=== PATIENT | female | born 1950 | race Caucasian/White ===

== ENCOUNTER 2016-09-15 14:05 | Inpatient (IN) | payer OTHER ==
[~2016-09-15] VITALS: Ht 170.2 cm; Wt 102.1 kg
[~2016-09-15 14:05] MED LIST: CARDIZEM CD240 MG PO; CITALOPRAM HBR10 MG PO; CITALOPRAM HBR20 MG PO; CLARITIN 10MG T10 MG PO; CLARITIN10 MG PO; COLACE 100MG C100 MG PO; COMBIVENT0.074 GM/I INH; COREG 12.5MG12.5 MG PO; DIAMOX 250 MG250 MG PO; ECOTRIN81 MG PO; FLAGYL500 MG PO; FLUOXETINE HCL10 MG PO; GLUCOTROL 10 MG10 MG PO; HABITROL 14 MG P1 EA TD; IPRAT-ALBUT 0.5-3 ML INH; LANTUS INS100 UTS/M1 SQ; LANTUS100 UNIT/1 SC; LASIX 40 MG TAB40 MG PO; LEVAQUIN500 MG PO; LEVAQUIN750 MG PO; LISINOPRIL10 MG PO; LOPERAMIDE2 MG PO; MEDROL DOSEPAK 24 MG PO; MONTELUKAST SOD10 MG PO; MORPHINE SULFAT15 M2 PO; MORPHINE SULFAT15 MG PO; NEURONTIN 300300 MG PO; NOVOLOG 10100 UNITS/ SQ; NOVOLOG 10100 UNITS1 SQ; OMEPRAZOLE20 MG PO; OXYCODONE HCL10 MG PO; SPIRIVA18 MCG INH; SYMBICORT 160-1 INHA INH; SYMBICORT 16010.2 GM INH; VITAMIN D50000 UNIT PO
[2016-09-15 14:33] LABS: HEMOGLOBIN 11.3 gm/dl (12.3-15.3); RED BLOOD COUNT 3.77 M/UL (4.00-5.10); WHITE BLOOD COUNT 13.3 K/UL (4.5-11.0)
[2016-09-16 03:44] LABS: HEMOGLOBIN 9.4 gm/dl (12.3-15.3)
[2016-09-16 03:45] LABS: RED BLOOD COUNT 3.19 M/UL (4.00-5.10); WHITE BLOOD COUNT 7.9 K/UL (4.5-11.0)
[2016-09-16 20:34] LABS: BUN/CREATININE RATIO 29 (0-10)
[2016-09-17 05:25] LABS: HEMOGLOBIN 9.3 gm/dl (12.3-15.3); RED BLOOD COUNT 3.05 M/UL (4.00-5.10); WHITE BLOOD COUNT 7.2 K/UL (4.5-11.0)
[2016-09-17 05:41] LABS: BUN/CREATININE RATIO 30 (0-10)
[2016-09-18 03:42] LABS: HEMOGLOBIN 8.3 gm/dl (12.3-15.3); RED BLOOD COUNT 2.8 M/UL (4.00-5.10); WHITE BLOOD COUNT 5.5 K/UL (4.5-11.0)
[2016-09-18 03:58] LABS: BUN/CREATININE RATIO 27 (0-10)
[2016-09-19 03:54] LABS: HEMOGLOBIN 8.6 gm/dl (12.3-15.3); RED BLOOD COUNT 2.88 M/UL (4.00-5.10); WHITE BLOOD COUNT 6.1 K/UL (4.5-11.0)
[2016-09-19 04:13] LABS: BUN/CREATININE RATIO 25 (0-10)
[2016-09-20 03:19] LABS: HEMOGLOBIN 8.8 gm/dl (12.3-15.3); RED BLOOD COUNT 2.95 M/UL (4.00-5.10)
[2016-09-20 03:49] LABS: BUN/CREATININE RATIO 26 (0-10)
[2016-09-21 03:37] LABS: HEMOGLOBIN 8.9 gm/dl (12.3-15.3); RED BLOOD COUNT 3.02 M/UL (4.00-5.10)
[2016-09-21 04:01] LABS: BUN/CREATININE RATIO 43 (0-10)
[2016-09-22 05:20] LABS: HEMOGLOBIN 8.5 gm/dl (12.3-15.3); RED BLOOD COUNT 2.85 M/UL (4.00-5.10); WHITE BLOOD COUNT 5.4 K/UL (4.5-11.0)
[2016-09-22 05:30] LABS: BUN/CREATININE RATIO 40 (0-10)
[2016-09-22] MEDS ORDERED: CHRONULAC20 GM/30 M PO (15:36)
[2016-09-22] MEDS ORDERED: ELIQUIS5 MG PO (15:37)
[2017-01-21] MEDS ORDERED: LASIX TAB 20 MG20 MG PO (21:38)
[2017-01-21] MEDS ORDERED: COREG 12.5MG12.5 MG PO (21:38)
[2017-01-21] MEDS ORDERED: GABAPENTIN600 MG PO (21:38)
[2017-01-21] MEDS ORDERED: COMBIVENT0.074 GM/I INH (21:39)
[2017-01-21] MEDS ORDERED: CHERATUSSIN AC473 ML PO (21:41)
[2017-01-21] MEDS ORDERED: COMBIVENT RESPIM4 GM INH (21:41)
[2017-01-21] MEDS ORDERED: FLUOXETINE HCL10 M1 PO (21:42)
[2017-01-21] MEDS ORDERED: DILTIAZEM 24HR240 M1 PO (21:42)
[2017-01-21] MEDS ORDERED: CITALOPRAM HBR20 MG PO (21:42)
[2017-01-21] MEDS ORDERED: KRISTALOSE10 GM PO (21:43)
[2017-01-21] MEDS ORDERED: GLUCOTROL 10 MG10 MG PO (21:43)
[2017-01-21] MEDS ORDERED: KLOR-CON M1010 MEQ PO (21:44)
[2017-01-21] MEDS ORDERED: EFFER-K 10 MEQ10 MEQ PO (21:44)
[2017-01-21] MEDS ORDERED: VENTOLIN/PROVE0.5 ML INH (21:45)
[2017-01-23] MEDS ORDERED: LANTUS INS100 UTS/M1 SQ (07:05)
[2017-01-28] MEDS ORDERED: ASPIRIN81 MG PO (15:25)
[2017-01-28] MEDS ORDERED: LEVAQUIN750 MG PO (15:32)
[2017-01-28] MEDS ORDERED: [UNRECOGNIZED DRUG - OTHER] INH (15:50)
== END 2016-09-22 17:18 | disposition home health service (06) | DRG 207 ==
LOC: ER1 14:05 → MED SURG 4 16:00 → CCU 16:00 → ZEROF 16:00 → CCU 20:30 → MED SURG 4 09-21 16:15
PROVIDERS: Emergency Medicine; Internal Medicine Critical Care Medicine; Physician Assistant; ADMIT Family Medicine
PROC: 5A1955Z Respiratory Ventilation, Greater than 96 Consecutive Hours (ICD-10-PCS; principal; 2016-09-15)
PROC: 0BJ08ZZ Inspection of Tracheobronchial Tree, Via Natural or Artificial Opening Endoscopic (ICD-10-PCS; 2016-09-16)
DX: J96.02 Acute respiratory failure with hypercapnia (principal); K72.00 Acute and subacute hepatic failure without coma; G93.41 Metabolic encephalopathy; J18.9 Pneumonia, unspecified organism; N17.9 Acute kidney failure, unspecified; J44.1 Chronic obstructive pulmonary disease with (acute) exacerbation; E66.2 Morbid (severe) obesity with alveolar hypoventilation; I50.30 Unspecified diastolic (congestive) heart failure; J96.01 Acute respiratory failure with hypoxia; R91.8 Other nonspecific abnormal finding of lung field; I48.0 Paroxysmal atrial fibrillation; I11.0 Hypertensive heart disease with heart failure; D69.6 Thrombocytopenia, unspecified; F11.90 Opioid use, unspecified, uncomplicated; Z90.10 Acquired absence of unspecified breast and nipple; Z98.890 Other specified postprocedural states; Z88.0 Allergy status to penicillin; Z91.041 Radiographic dye allergy status; Z88.6 Allergy status to analgesic agent; Z88.8 Allergy status to other drugs, medicaments and biological substances; Z79.899 Other long term (current) drug therapy; Z79.82 Long term (current) use of aspirin; Z79.4 Long term (current) use of insulin; Z87.891 Personal history of nicotine dependence; Z82.3 Family history of stroke; Z82.49 Family history of ischemic heart disease and other diseases of the circulatory system; R53.1 Weakness; E78.5 Hyperlipidemia, unspecified; E11.9 Type 2 diabetes mellitus without complications; K74.60 Unspecified cirrhosis of liver; Z85.3 Personal history of malignant neoplasm of breast; R41.82 Altered mental status, unspecified; M51.36 Other intervertebral disc degeneration, lumbar region; Z86.19 Personal history of other infectious and parasitic diseases; Z87.01 Personal history of pneumonia (recurrent); K21.9 Gastro-esophageal reflux disease without esophagitis; Z68.32 Body mass index [BMI] 32.0-32.9, adult
CPT/HCPCS: 31500; 36415; 36600; 51702; 70450; 71010; 71020; 80048; 80053; 80202; 80307; 81001; 82140; 82550; 82553; 82803; 82962; 83605; 83735; 83874; 83880; 84100; 84484; 85025; 85027; 87040; 87070; 87086; 87205; 87899; 93005; 94002; 94003; 94640; 94660; 94664; 96374; 96375; 97116; 97530; 99285; A4628; C9113; J1120; J1644; J1650; J1940; J1956; J2405; J3370; J7030; J7070

== ENCOUNTER → 2016-11-22 | Outpatient (CLI) | payer OTHER ==
[~2016-11-22] MED LIST changes: +ASPIRIN81 MG PO; +CELEXA20 MG PO; +CHERATUSSIN AC473 ML PO; +CHRONULAC20 GM/30 M PO; +COMBIVENT RESPIM4 GM INH; +CONSTULOSE10 GM/15 M PO; +DILTIAZEM 24HR240 M1 PO; +EFFER-K 10 MEQ10 MEQ PO; +ELIQUIS5 MG PO; +FLUOXETINE HCL10 M1 PO; +GABAPENTIN600 MG PO; +KLOR-CON M1010 MEQ PO; +KRISTALOSE10 GM PO; +LANOXIN TAB0.125 MG PO; +LASIX TAB 20 MG20 MG PO; +LASIX20 MG PO; +OXYGEN; +POTASSIUM CHLO10 MEQ PO; +SPIRIVA HANDIH18 MCG INH; +TYLENOL 325MG325 MG PO; +VENTOLIN HFA 66.7 GM INH; +VENTOLIN/PROVE0.5 ML INH; +[UNRECOGNIZED DRUG - OTHER] INH
== END ==
LOC: MAMO 11-01 09:40
DX: Z12.31 Encounter for screening mammogram for malignant neoplasm of breast (principal); D61.810 Antineoplastic chemotherapy induced pancytopenia; D69.6 Thrombocytopenia, unspecified; Z85.3 Personal history of malignant neoplasm of breast; R91.1 Solitary pulmonary nodule; J44.9 Chronic obstructive pulmonary disease, unspecified; R09.02 Hypoxemia
CPT/HCPCS: 36600; 82803; G0202

== ENCOUNTER → 2016-11-23 | Outpatient (CLI) | payer OTHER | LOC: HEART 5 10:11 | DX: J44.9 Chronic obstructive pulmonary disease, unspecified (principal) | CPT/HCPCS: 94060; 94729 ==

== ENCOUNTER → 2016-12-08 | Outpatient (CLI) | payer OTHER ==
[~2016-12-08] VITALS: Ht 162.6 cm; Wt 92.1 kg
[2016-12-08 10:12] LABS: HEMOGLOBIN 9.6 gm/dl (12.3-15.3); RED BLOOD COUNT 3.28 M/UL (4.00-5.10); WHITE BLOOD COUNT 9.5 K/UL (4.5-11.0)
== END ==
LOC: CT 09:04
PROVIDERS: Internal Medicine Hematology & Oncology
PROC: 0BBK3ZX Excision of Right Lung, Percutaneous Approach, Diagnostic (ICD-10-PCS; principal; 2016-12-08)
DX: R91.1 Solitary pulmonary nodule (principal); D61.810 Antineoplastic chemotherapy induced pancytopenia; D69.6 Thrombocytopenia, unspecified; Z85.3 Personal history of malignant neoplasm of breast; J93.9 Pneumothorax, unspecified
CPT/HCPCS: 36415; 71010; 77012; 82962; 85027; 85610; 85730; 88341; 88342

== ENCOUNTER 2016-12-15 22:59 | Inpatient (IN) | payer OTHER ==
[~2016-12-15] VITALS: Ht 162.6 cm; Wt 92.1 kg
[~2016-12-15 22:59] MED LIST changes: -ASPIRIN81 MG PO; -CELEXA20 MG PO; -CHERATUSSIN AC473 ML PO; -COMBIVENT RESPIM4 GM INH; -CONSTULOSE10 GM/15 M PO; -DILTIAZEM 24HR240 M1 PO; -EFFER-K 10 MEQ10 MEQ PO; -FLUOXETINE HCL10 M1 PO; -GABAPENTIN600 MG PO; -KLOR-CON M1010 MEQ PO; -KRISTALOSE10 GM PO; -LANOXIN TAB0.125 MG PO; -LASIX TAB 20 MG20 MG PO; -LASIX20 MG PO; -OXYGEN; -POTASSIUM CHLO10 MEQ PO; -SPIRIVA HANDIH18 MCG INH; -TYLENOL 325MG325 MG PO; -VENTOLIN HFA 66.7 GM INH; -VENTOLIN/PROVE0.5 ML INH; -[UNRECOGNIZED DRUG - OTHER] INH
[2016-12-15 23:50] LABS: HEMOGLOBIN 8.8 gm/dl (12.3-15.3); RED BLOOD COUNT 3.06 M/UL (4.00-5.10); WHITE BLOOD COUNT 8.6 K/UL (4.5-11.0)
[2016-12-16 06:06] LABS: HEMOGLOBIN 8.4 gm/dl (12.3-15.3); RED BLOOD COUNT 2.9 M/UL (4.00-5.10); WHITE BLOOD COUNT 7.5 K/UL (4.5-11.0)
[2016-12-16 06:20] LABS: BUN/CREATININE RATIO 30 (0-10)
[2016-12-17 05:19] LABS: HEMOGLOBIN 8.5 gm/dl (12.3-15.3); RED BLOOD COUNT 2.94 M/UL (4.00-5.10)
[2016-12-17 05:21] LABS: WHITE BLOOD COUNT 9.6 K/UL (4.5-11.0)
[2016-12-17 05:42] LABS: BUN/CREATININE RATIO 36 (0-10)
[2016-12-18 19:36] LABS: BUN/CREATININE RATIO 31 (0-10)
[2016-12-19] MEDS ORDERED: LASIX20 MG PO (11:32)
[2016-12-19] MEDS ORDERED: GLUCOTROL 10 MG10 MG PO (11:43)
[2016-12-19] MEDS ORDERED: LEVAQUIN750 MG PO (11:45)
[2016-12-19] MEDS ORDERED: LISINOPRIL10 MG PO (11:46)
[2016-12-19] MEDS ORDERED: SPIRIVA HANDIH18 MCG INH (11:49)
[2016-12-19] MEDS ORDERED: MEDROL DOSEPAK 24 MG PO (11:56)
[2017-01-21] MEDS ORDERED: COREG 12.5MG12.5 MG PO (21:38)
[2017-01-21] MEDS ORDERED: GABAPENTIN600 MG PO (21:38)
[2017-01-21] MEDS ORDERED: LASIX TAB 20 MG20 MG PO (21:38)
[2017-01-21] MEDS ORDERED: COMBIVENT0.074 GM/I INH (21:39)
[2017-01-21] MEDS ORDERED: CHERATUSSIN AC473 ML PO (21:41)
[2017-01-21] MEDS ORDERED: COMBIVENT RESPIM4 GM INH (21:41)
[2017-01-21] MEDS ORDERED: DILTIAZEM 24HR240 M1 PO (21:42)
[2017-01-21] MEDS ORDERED: FLUOXETINE HCL10 M1 PO (21:42)
[2017-01-21] MEDS ORDERED: CITALOPRAM HBR20 MG PO (21:42)
[2017-01-21] MEDS ORDERED: GLUCOTROL 10 MG10 MG PO (21:43)
[2017-01-21] MEDS ORDERED: KRISTALOSE10 GM PO (21:43)
[2017-01-21] MEDS ORDERED: EFFER-K 10 MEQ10 MEQ PO (21:44)
[2017-01-21] MEDS ORDERED: KLOR-CON M1010 MEQ PO (21:44)
[2017-01-21] MEDS ORDERED: VENTOLIN/PROVE0.5 ML INH (21:45)
[2017-01-23] MEDS ORDERED: LANTUS INS100 UTS/M1 SQ (07:05)
[2017-01-28] MEDS ORDERED: ASPIRIN81 MG PO (15:25)
[2017-01-28] MEDS ORDERED: LEVAQUIN750 MG PO (15:32)
[2017-01-28] MEDS ORDERED: [UNRECOGNIZED DRUG - OTHER] INH (15:50)
== END 2016-12-19 11:15 | disposition home or self-care (01) | DRG 189 ==
LOC: ER1 22:59 → ZEROF 12-16 01:40 → PROG CARE 12-16 17:04
PROVIDERS: Emergency Medicine; Hospitalist; ADMIT Internal Medicine
PROC: 5A09457 Assistance with Respiratory Ventilation, 24-96 Consecutive Hours, Continuous Positive Airway Pressure (ICD-10-PCS; principal; 2016-12-16)
DX: J96.22 Acute and chronic respiratory failure with hypercapnia (principal); G92 Toxic encephalopathy; J44.1 Chronic obstructive pulmonary disease with (acute) exacerbation; I50.32 Chronic diastolic (congestive) heart failure; E66.2 Morbid (severe) obesity with alveolar hypoventilation; C34.2 Malignant neoplasm of middle lobe, bronchus or lung; J44.0 Chronic obstructive pulmonary disease with (acute) lower respiratory infection; J96.21 Acute and chronic respiratory failure with hypoxia; I48.0 Paroxysmal atrial fibrillation; K74.60 Unspecified cirrhosis of liver; I10 Essential (primary) hypertension; E78.5 Hyperlipidemia, unspecified; F17.210 Nicotine dependence, cigarettes, uncomplicated; K75.81 Nonalcoholic steatohepatitis (NASH); D69.6 Thrombocytopenia, unspecified; M51.36 Other intervertebral disc degeneration, lumbar region; G89.4 Chronic pain syndrome; K21.9 Gastro-esophageal reflux disease without esophagitis; D64.9 Anemia, unspecified; T38.0X5A Adverse effect of glucocorticoids and synthetic analogues, initial encounter; E11.65 Type 2 diabetes mellitus with hyperglycemia; T40.605A Adverse effect of unspecified narcotics, initial encounter; Z79.01 Long term (current) use of anticoagulants; Z99.81 Dependence on supplemental oxygen; Z79.891 Long term (current) use of opiate analgesic; Z85.3 Personal history of malignant neoplasm of breast; Z88.0 Allergy status to penicillin; Z88.3 Allergy status to other anti-infective agents; Z91.041 Radiographic dye allergy status; Z82.49 Family history of ischemic heart disease and other diseases of the circulatory system; Z82.3 Family history of stroke; Z68.36 Body mass index [BMI] 36.0-36.9, adult; Z79.82 Long term (current) use of aspirin; Z79.4 Long term (current) use of insulin; Z79.899 Other long term (current) drug therapy
CPT/HCPCS: 36415; 36600; 71010; 80048; 80053; 82550; 82553; 82803; 82962; 83036; 83605; 83874; 83880; 84484; 85025; 87040; 87070; 87205; 93005; 94640; 94660; 94664; 96365; 96366; 96375; 99285; J1815; J1956; J2920; J2930

== ENCOUNTER 2016-12-26 12:20 | Inpatient (IN) | payer OTHER ==
[~2016-12-26] VITALS: Ht 162.6 cm; Wt 91.2 kg
[~2016-12-26 12:20] MED LIST changes: +LASIX20 MG PO; +SPIRIVA HANDIH18 MCG INH
[2016-12-26 13:04] LABS: HEMOGLOBIN 10.9 gm/dl (12.3-15.3); RED BLOOD COUNT 3.74 M/UL (4.00-5.10); WHITE BLOOD COUNT 24.1 K/UL (4.5-11.0)
[2016-12-26 13:20] LABS: BUN/CREATININE RATIO 39 (0-10)
[2016-12-26] MEDS ORDERED: CONSTULOSE10 GM/15 M PO (18:36)
[2016-12-26] MEDS ORDERED: POTASSIUM CHLO10 MEQ PO (18:38)
[2016-12-26] MEDS ORDERED: VENTOLIN HFA 66.7 GM INH (18:40)
[2016-12-26] MEDS ORDERED: CELEXA20 MG PO (18:41)
[2016-12-26] MEDS ORDERED: CLARITIN 10MG T10 MG PO (18:41)
[2016-12-27 03:22] LABS: HEMOGLOBIN 10.4 gm/dl (12.3-15.3); RED BLOOD COUNT 3.56 M/UL (4.00-5.10); WHITE BLOOD COUNT 22.3 K/UL (4.5-11.0)
[2016-12-28 04:00] LABS: HEMOGLOBIN 10.6 gm/dl (12.3-15.3); RED BLOOD COUNT 3.62 M/UL (4.00-5.10); WHITE BLOOD COUNT 21.7 K/UL (4.5-11.0)
[2016-12-29 03:14] LABS: HEMOGLOBIN 9.9 gm/dl (12.3-15.3); RED BLOOD COUNT 3.39 M/UL (4.00-5.10)
[2016-12-29 03:22] LABS: WHITE BLOOD COUNT 14.1 K/UL (4.5-11.0)
[2016-12-29 03:29] LABS: BUN/CREATININE RATIO 44 (0-10)
[2016-12-30 04:23] LABS: HEMOGLOBIN 9.9 gm/dl (12.3-15.3); RED BLOOD COUNT 3.41 M/UL (4.00-5.10)
[2016-12-30 04:50] LABS: BUN/CREATININE RATIO 46 (0-10)
[2016-12-30] MEDS ORDERED: LANOXIN TAB0.125 MG PO (11:07)
[2016-12-30] MEDS ORDERED: TYLENOL 325MG325 MG PO (11:16)
[2016-12-30] MEDS ORDERED: OXYGEN (11:22)
[2017-01-21] MEDS ORDERED: GABAPENTIN600 MG PO (21:38)
[2017-01-21] MEDS ORDERED: COREG 12.5MG12.5 MG PO (21:38)
[2017-01-21] MEDS ORDERED: LASIX TAB 20 MG20 MG PO (21:38)
[2017-01-21] MEDS ORDERED: COMBIVENT0.074 GM/I INH (21:39)
[2017-01-21] MEDS ORDERED: COMBIVENT RESPIM4 GM INH (21:41)
[2017-01-21] MEDS ORDERED: CHERATUSSIN AC473 ML PO (21:41)
[2017-01-21] MEDS ORDERED: DILTIAZEM 24HR240 M1 PO (21:42)
[2017-01-21] MEDS ORDERED: CITALOPRAM HBR20 MG PO (21:42)
[2017-01-21] MEDS ORDERED: FLUOXETINE HCL10 M1 PO (21:42)
[2017-01-21] MEDS ORDERED: GLUCOTROL 10 MG10 MG PO (21:43)
[2017-01-21] MEDS ORDERED: KRISTALOSE10 GM PO (21:43)
[2017-01-21] MEDS ORDERED: EFFER-K 10 MEQ10 MEQ PO (21:44)
[2017-01-21] MEDS ORDERED: KLOR-CON M1010 MEQ PO (21:44)
[2017-01-21] MEDS ORDERED: VENTOLIN/PROVE0.5 ML INH (21:45)
[2017-01-23] MEDS ORDERED: LANTUS INS100 UTS/M1 SQ (07:05)
[2017-01-28] MEDS ORDERED: ASPIRIN81 MG PO (15:25)
[2017-01-28] MEDS ORDERED: LEVAQUIN750 MG PO (15:32)
[2017-01-28] MEDS ORDERED: [UNRECOGNIZED DRUG - OTHER] INH (15:50)
== END 2016-12-30 10:35 | disposition home or self-care (01) | DRG 308 ==
LOC: ER1 12:20 → ZEROF 14:34 → PROG CARE 14:34
PROVIDERS: Emergency Medicine; Internal Medicine Infectious Disease; ADMIT Internal Medicine
DX: I49.5 Sick sinus syndrome (principal); G92 Toxic encephalopathy; J96.12 Chronic respiratory failure with hypercapnia; J96.11 Chronic respiratory failure with hypoxia; E66.2 Morbid (severe) obesity with alveolar hypoventilation; C34.2 Malignant neoplasm of middle lobe, bronchus or lung; I50.32 Chronic diastolic (congestive) heart failure; I48.0 Paroxysmal atrial fibrillation; G89.4 Chronic pain syndrome; E11.9 Type 2 diabetes mellitus without complications; I10 Essential (primary) hypertension; K21.9 Gastro-esophageal reflux disease without esophagitis; K74.60 Unspecified cirrhosis of liver; I34.0 Nonrheumatic mitral (valve) insufficiency; J44.9 Chronic obstructive pulmonary disease, unspecified; D69.6 Thrombocytopenia, unspecified; T42.6X5A Adverse effect of other antiepileptic and sedative-hypnotic drugs, initial encounter; D72.829 Elevated white blood cell count, unspecified; T38.0X5A Adverse effect of glucocorticoids and synthetic analogues, initial encounter; R13.10 Dysphagia, unspecified; E87.5 Hyperkalemia; I47.9 Paroxysmal tachycardia, unspecified; Z68.34 Body mass index [BMI] 34.0-34.9, adult; Z88.1 Allergy status to other antibiotic agents; Z88.6 Allergy status to analgesic agent; Z88.0 Allergy status to penicillin; Z88.8 Allergy status to other drugs, medicaments and biological substances; Z91.041 Radiographic dye allergy status; Z79.82 Long term (current) use of aspirin; Z79.4 Long term (current) use of insulin; Z79.899 Other long term (current) drug therapy; Z87.891 Personal history of nicotine dependence; Z85.3 Personal history of malignant neoplasm of breast; Z79.01 Long term (current) use of anticoagulants; Z83.3 Family history of diabetes mellitus; Z82.49 Family history of ischemic heart disease and other diseases of the circulatory system
CPT/HCPCS: ECHO; 36415; 70450; 71010; 71020; 80048; 80053; 81001; 82140; 82550; 82553; 82962; 83605; 83735; 83874; 84443; 84484; 85025; 85027; 87040; 92610; 93005; 93306; 94640; 94660; 94664; 96374; 99291; J1160; J2405; J7030

== ENCOUNTER → 2017-01-09 | Outpatient (CLI) | payer OTHER ==
[~2017-01-09] MED LIST changes: +ASPIRIN81 MG PO; +CELEXA20 MG PO; +CHERATUSSIN AC473 ML PO; +COMBIVENT RESPIM4 GM INH; +CONSTULOSE10 GM/15 M PO; +DILTIAZEM 24HR240 M1 PO; +EFFER-K 10 MEQ10 MEQ PO; +FLUOXETINE HCL10 M1 PO; +GABAPENTIN600 MG PO; +KLOR-CON M1010 MEQ PO; +KRISTALOSE10 GM PO; +LANOXIN TAB0.125 MG PO; +LASIX TAB 20 MG20 MG PO; +OXYGEN; +POTASSIUM CHLO10 MEQ PO; +TYLENOL 325MG325 MG PO; +VENTOLIN HFA 66.7 GM INH; +VENTOLIN/PROVE0.5 ML INH; +[UNRECOGNIZED DRUG - OTHER] INH
== END ==
LOC: OPSV 09:00
DX: Z45.2 Encounter for adjustment and management of vascular access device (principal); D61.810 Antineoplastic chemotherapy induced pancytopenia; D69.6 Thrombocytopenia, unspecified; R91.1 Solitary pulmonary nodule; Z85.3 Personal history of malignant neoplasm of breast; R91.8 Other nonspecific abnormal finding of lung field
CPT/HCPCS: 71010